=== PATIENT | male | born 1960 | race Caucasian/White ===

== ENCOUNTER 2017-05-09 16:24 | Emergency (ER) | payer OTHER ==
[~2017-05-09] VITALS: Wt 86.2 kg
[~2017-05-09 16:24] MED LIST: ANAPROX DS550 MG PO; DILAUDID8 MG PO; METFORMIN500 MG PO; NORFLEX100 MG PO; PREVACID SOLUTA30 MG PO; TRAMADOL HCL50 MG PO; ZOFRAN ODT8 MG PO; ZOFRAN4 MG PO
[2017-05-09 16:39] VITALS: BP 131/89
[2017-05-09] MEDS ORDERED: PAXIL40 M1 PO (16:39)
[2017-05-09 17:42] LABS: BILIRUBIN NEGATIVE (NEGATIVE); BLOOD NEGATIVE (NEGATIVE); CLARITY CLEAR (CLEAR); COLOR YELLOW (YELLOW); GLUCOSE NEGATIVE (NEGATIVE); KETONE NEGATIVE (NEGATIVE); LEUKO ESTERASE NEGATIVE (NEGATIVE); NITRITE NEGATIVE (NEGATIVE); PROTEIN NEGATIVE (NEGATIVE); UROBILINOGEN 0.2 E.U./dl (0.2-1.0)
[2017-05-09 17:43] LABS: BASO # 0.1 10*3/uL (0.0-0.1); BASO % 0.3 % (0.0-1.0); EOS # 0.4 10*3/uL (0.0-0.4); EOS % 2.5 % (1.0-4.0); HEMATOCRIT 47.1 % (42.0-52.0); HEMOGLOBIN 15.9 g/dl (14.0-18.0); IG # 0.1 10*3/uL (0.0-0.1); LYMPH # 3.7 10*3/uL (1.3-4.4); LYMPH % 22.2 % (27.0-41.0); MEAN CELL VOLUME 91.8 fl (80.0-94.0); MEAN CORPUSCULAR HGB CONC 33.8 g/dl (33.0-37.0); MEAN PLATELET VOLUME 9.6 fl (9.6-12.3); MONO % 6.1 % (3.0-9.0); NEUT # 11.4 10*3/uL (2.3-7.9); NEUT % 68.4 % (47.0-73.0); PLATELET COUNT AUTOMATED 282 10*3/uL (130-400); RED BLOOD COUNT 5.13 10*6/uL (4.50-5.90); RED CELL DISTRI WIDTH 12.8 % (0-14.5); WHITE BLOOD COUNT 16.7 10*3/uL (4.8-10.8)
[2017-05-09 17:48] LABS: BACTERIA TRACE; EPITHELIAL CELLS 0-2; URINE REFLEX COMMENT NO (NO); WBC 0-2 wbc/hpf (0-5)
[2017-05-09 17:57] LABS: ALBUMIN 3.9 gm/dl (3.1-4.5); ALKALINE PHOSPHATASE 75 U/L (45-117); BILIRUBIN, TOTAL 0.3 mg/dl (0.2-1.0); BUN 9 mg/dl (7-24); C-REACTIVE PROTEIN 0.34 MG/DL (0-0.3); CARBON DIOXIDE 28 mmol/L (21-32); CHLORIDE 104 mmol/L (98-107); EST GLOM FILT AFRICAN AMERICAN > 60 ml/min; GLUCOSE 166 mg/dL (65-99); POTASSIUM 4.6 mmol/L (3.5-5.1); SGOT/AST 17 IU/L (3-35); SGPT/ALT 30 U/L (12-78); SODIUM 140 mmol/L (136-145); TOTAL PROTEIN 7.7 gm/dL (6.4-8.2)
[2017-05-09] MEDS ORDERED: HYDROCODONE BIT1 T11 PO (20:12)
[2017-05-09] MEDS ORDERED: FLAGYL500 MG PO (20:12)
[2017-05-09] MEDS ORDERED: BENTYL10 MG PO (20:12)
[2017-05-09] MEDS ORDERED: CIPRO500 MG PO (20:12)
== END 2017-05-09 20:22 | disposition home or self-care (01) ==
LOC: ED 16:24
PROVIDERS: Physician Assistant
DX: R10.30 Lower abdominal pain, unspecified (principal); K62.5 Hemorrhage of anus and rectum; F17.200 Nicotine dependence, unspecified, uncomplicated; Z91.013 Allergy to seafood

== ENCOUNTER 2017-07-05 12:07 | Emergency (ER) | payer OTHER ==
[~2017-07-05] VITALS: Wt 87.1 kg
[~2017-07-05 12:07] MED LIST changes: +BENTYL10 MG PO; +CIPRO500 MG PO; +FLAGYL500 MG PO; +HYDROCODONE BIT1 T11 PO; +PAXIL40 M1 PO
[2017-07-05 12:22] VITALS: BP 168/100
[2017-07-05] MEDS ORDERED: LIDODERM1 EACH T (12:50)
== END 2017-07-05 13:30 | disposition home or self-care (01) ==
LOC: ED 12:07
DX: G89.29 Other chronic pain (principal); R10.84 Generalized abdominal pain; F17.200 Nicotine dependence, unspecified, uncomplicated; Z79.899 Other long term (current) drug therapy; Z91.013 Allergy to seafood

== ENCOUNTER 2018-02-02 18:18 | Emergency (ER) | payer OTHER ==
[~2018-02-02] VITALS: Ht 185.4 cm; Wt 81.6 kg
[~2018-02-02 18:18] MED LIST changes: +LIDODERM1 EACH T
[2018-02-02 18:55] LABS: BASO # 0.1 10*3/uL (0.0-0.1); BASO % 0.7 % (0.0-1.0); EOS # 0.7 10*3/uL (0.0-0.4); EOS % 7.1 % (1.0-4.0); HEMATOCRIT 45.7 % (42.0-52.0); HEMOGLOBIN 15.5 g/dl (14.0-18.0); LYMPH # 3.2 10*3/uL (1.3-4.4); MEAN CELL VOLUME 89.3 fl (80.0-94.0); MEAN CORPUSCULAR HGB 30.3 pg (27.0-31.0); MEAN CORPUSCULAR HGB CONC 33.9 g/dl (33.0-37.0); MEAN PLATELET VOLUME 9.5 fl (9.6-12.3); MONO # 0.7 10*3/uL (0.1-1.0); MONO % 7.5 % (3.0-9.0); NEUT # 4.5 10*3/uL (2.3-7.9); NEUT % 49.5 % (47.0-73.0); PLATELET COUNT AUTOMATED 276 10*3/uL (130-400); RED BLOOD COUNT 5.12 10*6/uL (4.50-5.90); WHITE BLOOD COUNT 9.1 10*3/uL (4.8-10.8)
[2018-02-02 19:02] LABS: BILIRUBIN NEGATIVE (NEGATIVE); BLOOD 2+ (NEGATIVE); CLARITY SL CLOUDY (CLEAR); COLOR YELLOW (YELLOW); GLUCOSE NEGATIVE (NEGATIVE); KETONE NEGATIVE (NEGATIVE); LEUKO ESTERASE NEGATIVE (NEGATIVE); NITRITE NEGATIVE (NEGATIVE)
[2018-02-02 19:07] LABS: LIPASE 74 U/L (73-393)
[2018-02-02 19:11] LABS: ALBUMIN 3.8 gm/dl (3.1-4.5); ALKALINE PHOSPHATASE 59 U/L (45-117); BUN 10 mg/dl (7-24); CHLORIDE 106 mmol/L (98-107); CREATININE 0.96 mg/dL (0.70-1.30); ETHYL ALCOHOL < 3.0 mg/dl (<3); POTASSIUM 4.2 mmol/L (3.5-5.1); SGOT/AST 23 IU/L (3-35); SGPT/ALT 27 U/L (12-78); SODIUM 138 mmol/L (136-145); TOTAL PROTEIN 7.3 gm/dL (6.4-8.2)
[2018-02-02 19:12] LABS: URINE AMPHETAMINES < 1000 (1000ng/ml); URINE BARBITURATES < 200 (200ng/ml); URINE BENZODIAZEPINES > 200 (200ng/ml); URINE CANNABINOIDS (THC) > 50 (50ng/ml); URINE COCAINE > 300 (300ng/ml); URINE METHADONE < 300 (300ng/ml); URINE OPIATES < 300 (300ng/ml)
[2018-02-02 19:16] LABS: BACTERIA 1+; MUCOUS TRACE
[2018-02-02 19:17] LABS: EPITHELIAL CELLS 0-2; RBC 51-100 rbc/hpf (0-2)
[2018-02-02 19:18] LABS: URINE PHENCYCLIDINE < 25 (25ng/ml)
[2018-02-02 21:20] VITALS: BP 136/89
== END 2018-02-02 22:05 | disposition home or self-care (01) ==
LOC: ED 18:18
PROVIDERS: Emergency Medicine
DX: R10.30 Lower abdominal pain, unspecified (principal); G89.29 Other chronic pain; F19.10 Other psychoactive substance abuse, uncomplicated; F41.8 Other specified anxiety disorders; F17.200 Nicotine dependence, unspecified, uncomplicated; Z91.041 Radiographic dye allergy status; Z91.013 Allergy to seafood; Z79.84 Long term (current) use of oral hypoglycemic drugs; Z79.899 Other long term (current) drug therapy

== ENCOUNTER → 2018-10-10 | Outpatient (CLI) | payer OTHER ==
[2018-10-10 15:17] LABS: HEMATOCRIT 45.7 % (42.0-52.0); HEMOGLOBIN 15.6 g/dl (14.0-18.0); MEAN CELL VOLUME 90.3 fl (80.0-94.0); MEAN CORPUSCULAR HGB 30.8 pg (27.0-31.0); MEAN CORPUSCULAR HGB CONC 34.1 g/dl (33.0-37.0); MEAN PLATELET VOLUME 10.2 fl (9.6-12.3); RED BLOOD COUNT 5.06 10*6/uL (4.50-5.90); RED CELL DISTRI WIDTH 13.2 % (0-14.5); WHITE BLOOD COUNT 9.9 10*3/uL (4.8-10.8)
[2018-10-10 15:43] LABS: ALBUMIN 3.6 gm/dl (3.1-4.5); BUN 8 mg/dl (7-24); CHLORIDE 107 mmol/L (98-107); CHOLESTEROL 208 mg/dL (<200); CREATININE 1.03 mg/dL (0.70-1.30); POTASSIUM 3.8 mmol/L (3.5-5.1); SGOT/AST 15 IU/L (3-35); SGPT/ALT 30 U/L (12-78); SODIUM 138 mmol/L (136-145); TRIGLYCERIDES 337 mg/dl (<150); VLDL CHOLESTEROL 67 mg/dL (6-40)
[2018-10-10 15:52] LABS: ALKALINE PHOSPHATASE 89 U/L (45-117); HDL CHOLESTEROL 35 mg/dl (40-60); LDL CHOLESTEROL 106 mg/dL (9-159)
[2018-10-10 16:15] LABS: VITAMIN D, 25-HYDROXY 14.5 ng/mL (30-100)
== END | disposition home or self-care (01) ==
LOC: LAB 14:23
PROVIDERS: Family Medicine
DX: Z12.5 Encounter for screening for malignant neoplasm of prostate (principal); I10 Essential (primary) hypertension; E11.40 Type 2 diabetes mellitus with diabetic neuropathy, unspecified; E78.00 Pure hypercholesterolemia, unspecified; E55.9 Vitamin D deficiency, unspecified

== ENCOUNTER → 2018-10-15 | Outpatient (CLI) | payer OTHER ==
[2018-10-16 09:11] LABS: PROSTATE SPECIFIC AG FREE 0.54 ng/mL; PROSTATE SPECIFIC AG, SERUM 8.2 ng/mL (0.0-4.0)
== END | disposition home or self-care (01) ==
LOC: LAB 12:38
PROVIDERS: Family Medicine
DX: R97.20 Elevated prostate specific antigen [PSA] (principal)

== ENCOUNTER → 2018-11-21 | Outpatient (CLI) | payer OTHER ==
[~2018-11-21] MED LIST changes: +Bactroban Oint22 GM T; +CEPHALEXIN500 M1 PO; +KEFLEX500 M1 PO; +NAPROSYN500 MG PO; +SEPTDS PO
[2018-11-22 19:06] LABS: HEPATITIS C QUANTITATION HCV Not Detected IU/mL (.)
== END | disposition home or self-care (01) ==
LOC: LAB 12:22
PROVIDERS: Family Medicine
DX: B19.20 Unspecified viral hepatitis C without hepatic coma (principal)

== ENCOUNTER 2018-12-01 18:01 | Emergency (ER) | payer OTHER ==
[2018-12-01 18:01] VITALS: BP 110/78
[~2018-12-01 18:01] MED LIST changes: -Bactroban Oint22 GM T; -CEPHALEXIN500 M1 PO; -KEFLEX500 M1 PO; -NAPROSYN500 MG PO; -SEPTDS PO
[2018-12-01] MEDS ORDERED: SEPTDS PO (18:03)
[2018-12-01] MEDS ORDERED: NAPROSYN500 MG PO (18:03)
[2018-12-01] MEDS ORDERED: KEFLEX500 M1 PO (18:03)
== END 2018-12-01 18:09 | disposition home or self-care (01) ==
LOC: ED 18:01
DX: T22.212A Burn of second degree of left forearm, initial encounter (principal); Z79.899 Other long term (current) drug therapy; Z91.013 Allergy to seafood; X08.8XXA Exposure to other specified smoke, fire and flames, initial encounter; Y93.89 Activity, other specified; Y92.89 Other specified places as the place of occurrence of the external cause; Y99.8 Other external cause status

== ENCOUNTER 2019-01-06 14:51 | Emergency (ER) | payer OTHER ==
[~2019-01-06] VITALS: Ht 185.4 cm; Wt 88.9 kg
[~2019-01-06 14:51] MED LIST changes: +KEFLEX500 M1 PO; +NAPROSYN500 MG PO; +SEPTDS PO
[2019-01-06 14:52] VITALS: BP 150/97
[2019-01-06] MEDS ORDERED: Bactroban Oint22 GM T (15:18)
[2019-01-06] MEDS ORDERED: SEPTDS PO (15:18)
[2019-01-06] MEDS ORDERED: CEPHALEXIN500 M1 PO (15:18)
== END 2019-01-06 15:33 | disposition home or self-care (01) ==
LOC: ED 14:51
DX: L03.032 Cellulitis of left toe (principal); E11.9 Type 2 diabetes mellitus without complications; I10 Essential (primary) hypertension; E78.5 Hyperlipidemia, unspecified; M19.90 Unspecified osteoarthritis, unspecified site; Z91.013 Allergy to seafood; Z79.899 Other long term (current) drug therapy

== ENCOUNTER → 2019-06-19 | Outpatient (CLI) | payer OTHER ==
[~2019-06-19] MED LIST changes: +Bactroban Oint22 GM T; +CEPHALEXIN500 M1 PO
== END | disposition home or self-care (01) ==
LOC: ORTHO 00:22
DX: M79.641 Pain in right hand (principal); R22.31 Localized swelling, mass and lump, right upper limb

== ENCOUNTER 2019-12-24 18:42 | Inpatient (IN) | payer OTHER ==
[~2019-12-24] VITALS: Ht 185.4 cm; Wt 88.0 kg
[2019-12-24 18:48] VITALS: BP 151/84
--- NOTE | 2019-12-24 19:12 | NUR ---
REPORT TO DAVID RN CARE TRANSFERRED
[2019-12-24 19:16] LABS: BASO # 0.1 10*3/uL (0.0-0.1); BASO % 0.5 % (0.0-1.0); EOS # 0.4 10*3/uL (0.0-0.4); EOS % 3.3 % (1.0-4.0); HEMATOCRIT 46.1 % (42.0-52.0); HEMOGLOBIN 15.3 g/dl (14.0-18.0); LYMPH # 3.6 10*3/uL (1.3-4.4); MEAN CELL VOLUME 91.8 fl (80.0-94.0); MEAN CORPUSCULAR HGB 30.5 pg (27.0-31.0); MEAN CORPUSCULAR HGB CONC 33.2 g/dl (33.0-37.0); MEAN PLATELET VOLUME 10.4 fl (9.6-12.3); MONO # 0.8 10*3/uL (0.1-1.0); MONO % 6.4 % (3.0-9.0); NEUT # 7.5 10*3/uL (2.3-7.9); NEUT % 60.5 % (47.0-73.0); PLATELET COUNT AUTOMATED 273 10*3/uL (130-400); RED BLOOD COUNT 5.02 10*6/uL (4.50-5.90); RED CELL DISTRI WIDTH 13.5 % (0-14.5); WHITE BLOOD COUNT 12.3 10*3/uL (4.8-10.8)
[2019-12-24 19:29] LABS: ACT PARTIAL THROMBO TIME 24.5 SECONDS (20.0-32.1); INTERNATIONAL NORM RATIO 0.9 (2.0-3.5)
[2019-12-24 19:34] LABS: ALBUMIN 3.8 gm/dl (3.1-4.5); ALKALINE PHOSPHATASE 99 U/L (45-117); BUN 11 mg/dl (7-24); CHLORIDE 101 mmol/L (98-107); CREATININE 1.26 mg/dL (0.70-1.30); POTASSIUM 3.9 mmol/L (3.5-5.1); SGOT/AST 18 IU/L (3-35); SGPT/ALT 32 U/L (12-78); SODIUM 134 mmol/L (136-145); TOTAL PROTEIN 7.7 gm/dL (6.4-8.2)
--- NOTE | 2019-12-24 19:48 | NUR ---
PT REFUSED THE USE OF A URINAL . PT WAS AMBULATORY TO BATHROOM WITH ASSIST. GAIT UNSTEADY . PT HOLDING ON TO THE COUNTER FOR BALANCE AND AT TIMES FELT HE MAY FALL. PT PLACED IN A WHEELCHAIR. PT IS AWAKE ALERT ORIENTED. DAVID ARCEO RN.
[2019-12-24 19:56] LABS: TROPONIN I < 0.015 ng/ml (<0.045)
[2019-12-24 20:00] LABS: BILIRUBIN NEGATIVE (NEGATIVE); CLARITY CLEAR (CLEAR); COLOR STRAW (YELLOW); GLUCOSE 3+ (NEGATIVE); KETONE NEGATIVE (NEGATIVE)
[2019-12-24 20:01] LABS: BLOOD NEGATIVE (NEGATIVE); LEUKO ESTERASE NEGATIVE (NEGATIVE); NITRITE NEGATIVE (NEGATIVE); UROBILINOGEN 0.2 E.U./dl (0.2-1.0)
[2019-12-24 20:05] LABS: BACTERIA TRACE; EPITHELIAL CELLS 0-2; RBC 0-2 rbc/hpf (0-2); WBC 0-2 wbc/hpf (0-5)
--- NOTE | 2019-12-24 20:12 | NUR ---
CALLED TO PATIENTS ROOM . PT STATES HE WANTS TO GO HOME. 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 I ALSO ENCOURAGED THE PATIENT TO STAY FOR RESULTS HE UNSTEADY . AND C/O CHEST AND ABD PAIN. PATIENTS PROVIDER MADE AWARE. DAVID ARCEO RN.
[2019-12-24 22:04] VITALS: BP 154/90
[2019-12-24 22:45] VITALS: BP 138/84
--- NOTE | 2019-12-24 22:45 | NUR ---
A 59, admitted to 4E, under the services of Dr. VINAYAK TELLES,RACHEL Meyer with a diagnosis of SEPSIS; CHEST PAIN; PNEUMONIA. Chief complaint is STOMACH PAIN PER PT. PT. STATES THAT HE HAD A HERNIA REPAIR 2 YEARS AGO AT [facility] AND IT HAS BEEN HURTING HIM EVER SINCE.. Patient arrived via stretcher from ER. Monitor applied. Initial assessment completed. Vital signs taken and recorded. DR. VINAYAK TELLES,RACHEL Meyer notified of admission to the unit. Orders received. See assessment for past medical history, medications and allergies. Patient and/or family oriented to unit. [facility] visitation policy reviewed. Clothing/patient valuable form completed. CHANDA TOWNSEND
--- NOTE | 2019-12-24 22:55 | NUR ---
ASSIST OF 2 UP TO BATHROOM. PT. SOMEWHAT UNSTEADY. ENCOURAGED TO USE URINAL & IS COMPLIANT WITH THAT.
--- NOTE | 2019-12-24 23:30 | NUR ---
CALLED DR. LICEA & RECEIVED ADMISSION ORDERS.
[2019-12-25] VITALS: BP 138/84
[2019-12-25] MEDS ORDERED: GLUCOPHAGE1000 MG PO (00:14)
[2019-12-25] MEDS ORDERED: REMERON15 M2 PO (00:15)
[2019-12-25] MEDS ORDERED: XANAX0.5 MG PO (00:15)
--- NOTE | 2019-12-25 00:40 | NUR ---
BLOOD SUGAR 294.
--- NOTE | 2019-12-25 00:44 | NUR ---
MEDICATED WITH DILAUDID FOR C/O CHEST PAIN ON LEFT SIDE & ALSO MEDICATED WITH XANAX FOR ANXIETY & REMERON FOR SLEEP. PT. INFORMED THAT HE IS NPO FOR STRESS TEST IN THE MORNING; VERBALIZED UNDERSTANDING. BED ALARM INTACT & CALL LIGHT WITHN REACH.
--- NOTE | 2019-12-25 03:15 | NUR ---
PT. C/O ABDOMINAL PAIN; INFORMED HIM THAT IT WAS TOO EARLY FOR DILAUDID. PT. VERBALIZED UNDERSTANDING.
--- NOTE | 2019-12-25 06:50 | NUR ---
MEDICATED WITH DILAUDID 1 MG SLOW IV PUSH FOR C/O LEFT SHOULDER/CHEST PAIN & ABDOMINAL PAIN FROM OLD HERNIA REPAIR.
--- NOTE | 2019-12-25 07:53 | NUR ---
PHYSICAL THERAPY Screen received pt admitted from home with left sided chest pain and dizziness presently having cardiac work up. Please consult PT as medically appropriate and if pt has a decline in functional status from baseline, thank you. Janet Galvez PT
[2019-12-25 08:00] VITALS: BP 122/82
--- NOTE | 2019-12-25 08:08 | NUR ---
PT TRANSPORTED VIA WHEELCHAIR FOR STRESS TEST WITH DR LICEA.INITIAL ASSESSMENT COMPLETED PRIOR TO TRANSPORT.
--- NOTE | 2019-12-25 08:30 | NUR ---
[employer] in to see patient. He is currently not in his room. Will follow up at a later time.
--- NOTE | 2019-12-25 10:00 | NUR ---
INFORMED CONSENT OBTAINED FOR LEXISCAN NUCLEAR STRESS TEST WITH DR. LICEA. RESTING EKG NSR WITH A RESTING HR OF 86 WITH BP OF 140/84. LUNGS CLEAR WITH SPO2 OF 95% ON ROOM AIR. HAD CONSTANT LEFT CHEST/SHOULDER DISCOMFORT THAT IS A 7 ON PAIN SCALE. PT COMPLETED A 1:00 LEXISCAN PROTOCOL RECEIVING LEXISCAN 0.4 MG IV OVER 10 SECONDS. HAD NO CHANGE IN CONSTANT CHEST/SHOULDER DISCOMFORT. DID C/O FEELING "ANXIOUS" WITH TESTING. HAD NO EKG CHANGES. HAD A PEAK HR OF 96 WITH BP OF 100/66. LAST RECOVERY HR OF 89 WITH BP OF 122/70. AWAITING SCANNING IN STABLE CONDITION.
--- NOTE | 2019-12-25 11:12 | NUR ---
Spoke to Dr. Garcia regarding patient's diet order. New order for NCS. Nurse notified.
--- NOTE | 2019-12-25 11:19 | NUR ---
[employer] in to talk to patient. Patient states lives at home alone with his family checking in on him. There are 0 steps in the home. There is an elevator. Physician: Dr. Woo Shaw (who patient states said he would be in the hospital for a couple of days) Pharmacy: [facility] Home health services: none Patient's level of ADLs: INDEPENDENT Patient has working utilities: yes DME: none Follow-up physician's appointment after d/c: he prefers to make his own follow up appt after discharge Does patient want to access PORTAL?: no Discharge plan discussed with patient. He lives at home alone with his family checking in on him. Discussed home health care services and he denies any home needs at this time. When medically stable he will be discharged to home. He states a friend will provide transportation on discharge. EDGARD YE
[2019-12-25 12:00] VITALS: BP 143/73
[2019-12-25 16:00] VITALS: BP 139/77
[2019-12-25 20:00] VITALS: BP 137/82
--- NOTE | 2019-12-25 20:42 | NUR ---
PRN IV DILAUDID GIVEN AT THIS TIME FOR LEROY CHEST AND BACK PAIN 9/10 AT THIS TIME. PATIENT ALERT AND ORIENTED AT THIS TIME. ALL OTHER MEDICATIONS GIVEN WITHOUT INCIDENT. PATIENT AT BEDSIDE AT THIS TIME. CALL LIGHT WITHIN REACH WILL CONTINUE TO MONITOR.
--- NOTE | 2019-12-25 21:40 | NUR ---
PATIENT STATED THAT HIS PAIN WAS NOW A 6/10 AFTER PRN IV DILAUDID.
[2019-12-25 23:58] VITALS: BP 148/88
--- NOTE | 2019-12-26 02:35 | NUR ---
PRN IV DILAUDID GIVEN AT THIS TIME AT PATIENT REQUEST FOR 8/10 PAIN TO SIGIFREDO CHEST/SHOULDER AREA AND BACK. PATIENT A&O X3 AT THIS TIME.
--- NOTE | 2019-12-26 03:30 | NUR ---
PATIENT RESTING IN BED IN A POSITION OF COMFORT WITH EYES CLOSED, RESPIRATIONS EASY AND NON LABORED AT THIS TIME THERE ARE NO SIGNS OR SYMPTOMS OF PAIN NOTED. CALL LIGHT WITHIN REACH WILL CONTINUE TO MONITOR.
[2019-12-26 08:00] VITALS: BP 138/70
--- NOTE | 2019-12-26 08:00 | NUR ---
MEDICATED WITH PRN DILAUDID PER ORDER AND REQUEST FOR C/O L SHOULDER AND ABDOMINAL PAIN.
--- NOTE | 2019-12-26 10:19 | NUR ---
PATIENT DISCHARGED TO HOME.
== END 2019-12-26 10:19 | disposition home or self-care (01) | DRG 203 ==
LOC: ED 18:42 → 4E 21:11 → EDHOLD 21:11 → 4E 21:50
PROVIDERS: Emergency Medicine; Nurse Practitioner Family; ADMIT Internal Medicine
PROC: 4A02XM4 Measurement of Cardiac Total Activity, External Approach (ICD-10-PCS; principal; 2019-12-25)
PROC: 3E073KZ Introduction of Other Diagnostic Substance into Coronary Artery, Percutaneous Approach (ICD-10-PCS; 2019-12-25)
DX: R07.89 Other chest pain (principal); R07.2 Precordial pain; E11.65 Type 2 diabetes mellitus with hyperglycemia; M48.02 Spinal stenosis, cervical region; F33.1 Major depressive disorder, recurrent, moderate; F41.1 Generalized anxiety disorder; F17.210 Nicotine dependence, cigarettes, uncomplicated; Z79.899 Other long term (current) drug therapy; Z91.041 Radiographic dye allergy status; Z91.013 Allergy to seafood; E87.1 Hypo-osmolality and hyponatremia

== ENCOUNTER → 2020-09-29 | Outpatient (CLI) | payer OTHER ==
[~2020-09-29] MED LIST changes: +GLUCOPHAGE1000 MG PO; +REMERON15 M2 PO; +XANAX0.5 MG PO
[2020-09-29 14:16] LABS: HEMATOCRIT 45.5 % (42.0-52.0); MEAN CELL VOLUME 84.9 fl (80.0-94.0); MEAN CORPUSCULAR HGB 28.4 pg (27.0-31.0); MEAN CORPUSCULAR HGB CONC 33.4 g/dl (33.0-37.0); MEAN PLATELET VOLUME 9.7 fl (9.6-12.3); RED BLOOD COUNT 5.36 10*6/uL (4.50-5.90); RED CELL DISTRI WIDTH 13.2 % (0-14.5)
[2020-09-29 14:46] LABS: ALBUMIN 3.9 gm/dl (3.1-4.5); BUN 12 mg/dl (7-24); CHLORIDE 103 mmol/L (98-107); CHOLESTEROL 212 mg/dL (<200); CREATININE 1.12 mg/dL (0.70-1.30); POTASSIUM 4.7 mmol/L (3.5-5.1); SGOT/AST 12 IU/L (3-35); SGPT/ALT 23 U/L (12-78); SODIUM 137 mmol/L (136-145); TOTAL PROTEIN 7.7 gm/dL (6.4-8.2); TRIGLYCERIDES 346 mg/dl (<150); VLDL CHOLESTEROL 69 mg/dL (6-40)
[2020-09-29 14:49] LABS: ALKALINE PHOSPHATASE 80 U/L (45-117); HDL CHOLESTEROL 34 mg/dl (40-60); LDL CHOLESTEROL 109 mg/dL (9-159)
== END | disposition home or self-care (01) ==
LOC: LAB 13:48
PROVIDERS: ATTEND Family Medicine
DX: E11.9 Type 2 diabetes mellitus without complications (principal); G90.09 Other idiopathic peripheral autonomic neuropathy

== ENCOUNTER 2021-04-07 23:16 | Emergency (ER) | payer OTHER ==
[~2021-04-07] VITALS: Ht 182.8 cm; Wt 81.6 kg
[2021-04-07 23:20] VITALS: BP 131/102
== END 2021-04-07 23:27 | disposition left against medical advice (07) ==
LOC: ED 23:16
DX: R41.82 Altered mental status, unspecified (principal); Z79.899 Other long term (current) drug therapy; Z79.84 Long term (current) use of oral hypoglycemic drugs; Z98.890 Other specified postprocedural states

== ENCOUNTER → 2023-12-04 | Outpatient (CLI) | payer MEDICAID ==
[2023-12-04 16:40] LABS: HEMATOCRIT 48.4 % (42.0-52.0); MEAN CELL VOLUME 87.1 fl (80.0-94.0); MEAN CORPUSCULAR HGB 29.5 pg (27.0-31.0); MEAN CORPUSCULAR HGB CONC 33.9 g/dl (33.0-37.0); MEAN PLATELET VOLUME 9.6 fl (9.6-12.3); RED BLOOD COUNT 5.56 10*6/uL (4.50-5.90); RED CELL DISTRI WIDTH 12.9 % (0-14.5); WHITE BLOOD COUNT 9.6 10*3/uL (4.8-10.8)
[2023-12-04 17:22] LABS: VITAMIN D, 25-HYDROXY 24.3 ng/mL (30-100)
[2023-12-04 17:23] LABS: ALKALINE PHOSPHATASE 100 U/L (46-116); BUN 13 mg/dl (9-23); CHLORIDE 99 mmol/L (98-107); CHOLESTEROL 208 mg/dL (<200); LDL CHOLESTEROL 103 mg/dL (9-159); POTASSIUM 5.5 mmol/L (3.4-5.1); SGPT/ALT 24 U/L (5-49); TOTAL PROTEIN 7.5 gm/dL (6.0-8.0); TRIGLYCERIDES 289 mg/dl (<150)
[2023-12-05 10:10] LABS: HEMOGOLBIN A1C 15.3 % (4.8-5.6)
== END ==
LOC: LAB 16:26
PROVIDERS: ATTEND Family Medicine
DX: Z12.5 Encounter for screening for malignant neoplasm of prostate (principal); I10 Essential (primary) hypertension; E11.9 Type 2 diabetes mellitus without complications; E03.9 Hypothyroidism, unspecified; Z79.899 Other long term (current) drug therapy

== ENCOUNTER → 2024-05-22 | Outpatient (CLI) | payer MEDICAID | END | disposition home or self-care (01) | LOC: WOUNDCARE 02:26 | PROVIDERS: ATTEND Nurse Practitioner Family | DX: T87.81 Dehiscence of amputation stump (principal); E11.621 Type 2 diabetes mellitus with foot ulcer; L97.522 Non-pressure chronic ulcer of other part of left foot with fat layer exposed; E11.40 Type 2 diabetes mellitus with diabetic neuropathy, unspecified; E11.51 Type 2 diabetes mellitus with diabetic peripheral angiopathy without gangrene; I73.9 Peripheral vascular disease, unspecified; B96.1 Klebsiella pneumoniae [K. pneumoniae] as the cause of diseases classified elsewhere; F17.210 Nicotine dependence, cigarettes, uncomplicated; Z79.899 Other long term (current) drug therapy; Y83.5 Amputation of limb(s) as the cause of abnormal reaction of the patient, or of later complication, without mention of misadventure at the time of the procedure ==

== ENCOUNTER → 2024-05-29 | Outpatient (CLI) | payer MEDICAID | END | disposition home or self-care (01) | LOC: WOUNDCARE 01:16 | PROVIDERS: ATTEND Nurse Practitioner Family | DX: T87.81 Dehiscence of amputation stump (principal); E11.621 Type 2 diabetes mellitus with foot ulcer; L97.522 Non-pressure chronic ulcer of other part of left foot with fat layer exposed; E11.51 Type 2 diabetes mellitus with diabetic peripheral angiopathy without gangrene; E11.40 Type 2 diabetes mellitus with diabetic neuropathy, unspecified; B96.1 Klebsiella pneumoniae [K. pneumoniae] as the cause of diseases classified elsewhere; F17.210 Nicotine dependence, cigarettes, uncomplicated; Z79.899 Other long term (current) drug therapy; Y83.5 Amputation of limb(s) as the cause of abnormal reaction of the patient, or of later complication, without mention of misadventure at the time of the procedure ==

== ENCOUNTER → 2024-07-02 | Outpatient (CLI) | payer MEDICAID ==
[2024-07-02 08:45] LABS: HEMATOCRIT 44.3 % (42.0-52.0); MEAN CELL VOLUME 86.4 fl (80.0-94.0); MEAN CORPUSCULAR HGB CONC 33.6 g/dl (33.0-37.0); MEAN PLATELET VOLUME 9.9 fl (9.6-12.3); RED BLOOD COUNT 5.13 10*6/uL (4.50-5.90); RED CELL DISTRI WIDTH 13.3 % (0-14.5); WHITE BLOOD COUNT 10.6 10*3/uL (4.8-10.8)
[2024-07-02 09:13] LABS: VITAMIN D, 25-HYDROXY 19.3 ng/mL (30-100)
[2024-07-02 10:25] LABS: ALKALINE PHOSPHATASE 171 U/L (46-116); BUN 12 mg/dl (9-23); CHLORIDE 96 mmol/L (98-107); CHOLESTEROL 183 mg/dL (<200); LDL CHOLESTEROL 76 mg/dL (9-159); POTASSIUM 4.8 mmol/L (3.4-5.1); SGPT/ALT 20 U/L (5-49); TRIGLYCERIDES 302 mg/dl (<150)
== END | disposition home or self-care (01) ==
LOC: MRI 06-25 13:00 → LAB 01:41 → MRI 01:41
PROVIDERS: Family Medicine; ATTEND Nurse Practitioner Family
DX: M19.072 Primary osteoarthritis, left ankle and foot (principal); M19.071 Primary osteoarthritis, right ankle and foot; E11.621 Type 2 diabetes mellitus with foot ulcer; I73.9 Peripheral vascular disease, unspecified; I10 Essential (primary) hypertension; M65.872 Other synovitis and tenosynovitis, left ankle and foot; M65.871 Other synovitis and tenosynovitis, right ankle and foot

== ENCOUNTER → 2024-07-04 | Outpatient (CLI) | payer MEDICAID ==
[~2024-07-04] MED LIST changes: +BARIUM SULFATE 60% 355 ML BOT PO ONE; +BARIUM SULFATE 98% 340 GM BOT PO ONE; +BARIUM SULFATE TABLET 700 MG PO ONE; +SODIUM BICARBONATE 4 GM PACK PO ONE
== END | disposition home or self-care (01) ==
LOC: RAD 10:00
PROVIDERS: ATTEND Family Medicine
DX: K21.9 Gastro-esophageal reflux disease without esophagitis (principal); R10.9 Unspecified abdominal pain